=== PATIENT | male | born 1995 | race Two or more races ===

== ENCOUNTER 2018-01-23 17:13 | Emergency (ER) | payer SELFPAY ==
[2018-01-23] MEDS ORDERED: LIDOCAINE 1% INJ-PF (10 MG/ML) 30 ML SDV INJ ONE (18:01)
--- NOTE | 2018-01-23 18:03 | ER Document Report ---
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 Patient states it was a brand-new very sharp knife. He is up-to-date on his tetanus in the last 5 years. Bleeding is controlled at this time. He has full range of motion of all fingers. TRAVEL OUTSIDE OF THE [place] IN LAST 30 DAYS: No - Related Data Allergies/Adverse Reactions: No Known Allergies Allergy (Verified 01/23/18 17:14) Past Medical History - General Information source: Patient - Social History Smoking Status: Never Smoker Family History: Reviewed & Not Pertinent Review of Systems - Review of Systems Constitutional: No symptoms reported EENT: No symptoms reported Cardiovascular: No symptoms reported Respiratory: No symptoms reported Gastrointestinal: No symptoms reported Genitourinary: No symptoms reported Male Genitourinary: No symptoms reported Musculoskeletal: No symptoms reported Skin: See HPI Hematologic/Lymphatic: No symptoms reported Neurological/Psychological: No symptoms reported Physical Exam - Vital signs Vitals: Temp Pulse Resp BP Pulse Ox 99.5 F 76 18 130/87 H 95 01/23/18 17:23 01/23/18 17:23 01/23/18 17:23 01/23/18 17:23 01/23/18 17:23 - Notes Notes: PHYSICAL EXAMINATION: GENERAL: Anxious, but in no acute distress. HEAD: Atraumatic, normocephalic. EYES: Pupils equal round and reactive to light, extraocular movements intact, sclera anicteric, conjunctiva are normal. NECK: Normal range of motion, supple without lymphadenopathy LUNGS: CTAB and equal. No wheezes rales or rhonchi. HEART: Regular rate and rhythm without murmurs EXTREMITIES: Normal range of motion, no pitting edema. No cyanosis. NEUROLOGICAL: Cranial nerves grossly intact. Normal sensory/motor exams. PSYCH: Normal mood, normal affect. SKIN: Warm, Dry, normal turgor, less than 1 cm laceration to the third digit, palmar surface of the left hand, 1-1/2 cm laceration to the fourth and fifth digits, palmar surfaces of the left hand, all just above the MCP joint, no active bleeding, all superficial in the subcutaneous fat Course - Re-evaluation Re-evalutation: 01/23/18 23:04 Sutures were placed and hemostasis was achieved. Patient tolerated well. Patient be placed on Keflex. - Vital Signs Vital signs: Temp Pulse Resp BP Pulse Ox 98.6 F 76 18 119/70 96 01/23/18 19:40 01/23/18 19:40 01/23/18 19:40 01/23/18 19:40 01/23/18 19:40 Procedures - Laceration/Wound Repair Left Finger 3rd digit Time completed: 20:00 Wound length (cm): 4 Wound's Depth, Shape: Superficial, Linear Laceration pre-procedure: Sterile PPE donned, Sterile drapes applied, Shur- Clens applied Anesthetic type: 1% Lidocaine Volume Anesthetic (mLs): 5 Wound explored: Clean Irrigated w/ Saline (mLs): 30 Wound Repaired With: Sutures Suture Size/Type: 5:0, Nylon Number of Sutures: 13 Post-procedure wound care: Sterile dressing applied Post-procedure NV exam normal: Yes Complications: No Discharge - Discharge Clinical Impression: Finger laceration Qualifiers: Encounter type: initial encounter Finger: unspecified finger Damage to nail status: without damage Foreign body presence: without foreign body Laterality: left Qualified Code(s): S61.219A - Laceration without foreign body of unspecified finger without damage to nail, initial encounter Condition: Stable Disposition: HOME, SELF-CARE Instructions: Laceration Care ([facility]), Prophylactic Antibiotic ([facility]), Soap Cleansing ([facility]) Additional Instructions: Return immediately for any new or worsening symptoms. Follow up with primary care provider, call tomorrow to make followup appointment. Please be seen in 7 days to have sutures removed. Please take all of your antibiotic. Prescriptions: Cephalexin [Cephalexin 250 MG Tablet] 1 tab PO BID #10 tablet Forms: Return to Work
[2018-01-23 19:45] VITALS: BP 119/70
== END 2018-01-23 19:55 | disposition home or self-care (01) ==
LOC: ER 17:13
DX: S61.213A Laceration without foreign body of left middle finger without damage to nail, initial encounter (principal); S61.215A Laceration without foreign body of left ring finger without damage to nail, initial encounter; S61.217A Laceration without foreign body of left little finger without damage to nail, initial encounter; W45.8XXA Other foreign body or object entering through skin, initial encounter; Y93.G1 Activity, food preparation and clean up; Y99.0 Civilian activity done for income or pay
CPT/HCPCS: 99282; 12002; J3490

== ENCOUNTER 2018-01-30 17:11 | Emergency (ER) | payer SELFPAY ==
[2018-01-30 17:16] VITALS: BP 127/68
--- NOTE | 2018-01-30 17:21 | ER Document Report ---
HPI - HPI Patient complains to provider of: Suture removal Onset: Other - Last Thursday Pain Level: 1 Context: 22-year-old male here for suture removal the base of the third fourth and fifth finger palmar aspect of the left hand. Associated Symptoms: None Exacerbated by: Denies Relieved by: Denies Similar symptoms previously: No Recently seen / treated by doctor: Yes - ROS ROS below otherwise negative: Yes Systems Reviewed and Negative: Yes All other systems reviewed and negative Past Medical History - General Information source: Patient - Social History Smoking Status: Never Smoker Frequency of alcohol use: None Drug Abuse: None Lives with: Family Family History: Reviewed & Not Pertinent - Medical History Medical History: Negative Renal/ Medical History: Denies: Hx Peritoneal Dialysis Surgical Hx: Negative Vertical Provider Document - CONSTITUTIONAL Agree With Documented VS: Yes - INFECTION CONTROL TRAVEL OUTSIDE OF THE [place] IN LAST 30 DAYS: No - MUSCULOSKELETAL/EXTREMETIES Musculoskeletal/Extremeties: MAEW, FROM, Non-Tender - DERM Integumentary: Laceration - The 3 sutured lacerations the base of the left Quan third fourth and fifth fingers healing well there is no erythema. Course - Vital Signs Vital signs: Temp Pulse Resp BP Pulse Ox 98.9 F 80 18 127/68 H 98 01/30/18 17:15 01/30/18 17:15 01/30/18 17:15 01/30/18 17:15 01/30/18 17:15 Discharge - Discharge Clinical Impression: Visit for suture removal Condition: Good Disposition: HOME, SELF-CARE Instructions: Suture Removal Additional Instructions: Return to the emergency room any concerns
== END 2018-01-30 18:00 | disposition home or self-care (01) ==
LOC: ER 17:11
DX: S61.213D Laceration without foreign body of left middle finger without damage to nail, subsequent encounter (principal); S61.215D Laceration without foreign body of left ring finger without damage to nail, subsequent encounter; S61.217D Laceration without foreign body of left little finger without damage to nail, subsequent encounter; W26.0XXD Contact with knife, subsequent encounter